=== PATIENT | female | born 1960 | race American Indian/Alaskan Native ===

== ENCOUNTER 2018-01-14 07:07 | Outpatient (CLI) | payer OTHER | END 2018-01-14 07:08 | disposition home or self-care (01) | LOC: PF 07:07 | PROVIDERS: ATTEND Internal Medicine | DX: J44.9 Chronic obstructive pulmonary disease, unspecified (principal); I10 Essential (primary) hypertension; F31.9 Bipolar disorder, unspecified; F20.9 Schizophrenia, unspecified; H54.3 Unqualified visual loss, both eyes; Z85.3 Personal history of malignant neoplasm of breast | CPT/HCPCS: 94010 ==

== ENCOUNTER 2021-11-25 18:10 | Emergency (ER) | payer MEDICARE, OTHER ==
[2021-11-25] MEDS ORDERED: HYDROmorphone 1 MG/1 ML INJ IV ONE ×3 (18:18→19:44)
[2021-11-25] MEDS ORDERED: ONDANSETRON 4 MG/2 ML INJ IV ONE (18:19)
--- NOTE | 2021-11-25 18:25 | Emergency Department Report ---
ED Chest Pain HPI - General Stated Complaint: CHEST PAIN PUI?: Yes Time Seen by Provider: 11/25/21 18:18 Source: patient, EMS, old records reviewed Mode of arrival: Ambulatory Limitations: No Limitations - History of Present Illness Initial Comments: Chief complaint: Chest pain HPI: This is a 61-year-old female with history of hypertension, COPD, atrial fibrillation, breast cancer in remission, tobacco dependence who presents with severe sudden onset of left-sided chest pain rating to the chest 45 minutes prior to arrival. While watching TV and playing games on her smart phone, she had a sudden onset of heavy chest pain which became sharp. Pain is 10 out of 10 left-sided radiating to the back. She has associated shortness of breath. No previous history of heart attack. No family history of heart attack. There is a family history of stroke. MD Complaint: chest pain -: Sudden, minutes(s) (45 minutes prior to arrival) Onset: during rest Pain Location: left chest Pain Radiation: back Severity: severe Severity scale (0 -10): 10 Quality: heaviness, sharp Consistency: constant Improves With: nothing Worsens With: nothing Treatments Prior to Arrival: aspirin, nitroglycerin, oxygen, other (Morphine) - Related Data Home Medications Medication Instructions Recorded Confirmed Last Taken Bisoprolol Fumarate [Zebeta] 5 mg PO DAILY 08/24/14 05/11/15 05/11/15 07:00 Budesoni/Formotero 160-4.5(Nf) 10.2 gm IH BID 08/24/14 05/11/15 05/10/15 21:00 [Symbicort 160-4.5] Cyclobenzaprine HCl [Flexeril 5mg] 5 mg PO TID PRN 08/24/14 05/11/15 05/08/15 Levothyroxine [Synthroid] 112 mcg PO DAILY 08/24/14 05/11/15 05/10/15 08:00 Naproxen [Naprosyn] 250 mg PO DAILY PRN 08/24/14 05/11/15 05/08/15 Tamoxifen Citrate 20 mg PO DAILY 08/24/14 05/11/15 05/08/15 captopriL [Capoten] 50 mg PO DAILY 08/24/14 05/11/15 05/11/15 07:00 Albuterol Mdi (or & Nicu Only) 2 puff IH QID PRN 05/07/15 05/11/15 05/10/15 22:00 [ProAir HFA Inhaler] Cyclobenzaprine HCl [Flexeril 5 MG 5 mg PO PRN PRN 05/07/15 05/11/15 05/08/15 TAB] Diclofenac Sodium [Voltaren] 100 gm TP PRN PRN 05/07/15 05/11/15 05/08/15 FLUoxetine HCL [PROzac] 40 mg PO QDAY 05/07/15 05/11/15 05/08/15 Meloxicam [Mobic] 7.5 mg PO QDAY 05/07/15 05/11/15 05/08/15 amLODIPine [Norvasc] 10 mg PO DAILY 05/07/15 05/11/15 05/11/15 07:00 Allergies Allergy/AdvReac Type Severity Reaction Status Date / Time latex Allergy Itching Verified 11/25/21 18:48 sulfamethoxazole Allergy Hives Verified 11/25/21 18:48 [From Bactrim] trimethoprim [From Bactrim] Allergy Hives Verified 11/25/21 18:48 Heart Score - HEART Score History: Highly suspicious EKG: Significant ST-depression Age: 45-65 Risk factors: 1-2 risk factors Troponin: < normal limit HEART Score: 6 - EKG Read Time Time EKG Completed: 18:13 EKG Read Time: 18:13 - Critical Actions Critical Actions: 4-6 pts:12-16.6% risk of adverse cardiac event. Should be admitted ED Review of Systems ROS: Stated complaint: CHEST PAIN Other details as noted in HPI Comment: All other systems reviewed and negative Constitutional: denies: chills, fever, malaise Respiratory: denies: cough, shortness of breath Cardiovascular: chest pain Gastrointestinal: denies: abdominal pain, nausea, vomiting ED Past Medical Hx - Past Medical History Previous Medical History?: Yes Hx Hypertension: Yes (2010) Hx Renal Disease: No Hx Arthritis: Yes () Hx COPD: Yes Additional medical history: Heart disease. Thyroid disease. - Surgical History Past Surgical History?: Yes Additional Surgical History: Bilateral mastectomy. - Family History Family history: hypertension, vascular disease - Social History Smoking Status: Current Every Day Smoker Substance Use Type: Alcohol - Medications Home Medications: Home Medications Medication Instructions Recorded Confirmed Last Taken Type Bisoprolol Fumarate [Zebeta] 5 mg PO DAILY 08/24/14 05/11/15 05/11/15 07:00 History Budesoni/Formotero 160-4.5(Nf) 10.2 gm IH BID 08/24/14 05/11/15 05/10/15 21:00 History [Symbicort 160-4.5] Cyclobenzaprine HCl [Flexeril 5mg] 5 mg PO TID PRN 08/24/14 05/11/15 05/08/15 History Levothyroxine [Synthroid] 112 mcg PO DAILY 08/24/14 05/11/15 05/10/15 08:00 History Naproxen [Naprosyn] 250 mg PO DAILY PRN 08/24/14 05/11/15 05/08/15 History Tamoxifen Citrate 20 mg PO DAILY 08/24/14 05/11/15 05/08/15 History captopriL [Capoten] 50 mg PO DAILY 08/24/14 05/11/15 05/11/15 07:00 History Albuterol Mdi (or & Nicu Only) 2 puff IH QID PRN 05/07/15 05/11/15 05/10/15 22:00 History [ProAir HFA Inhaler] Cyclobenzaprine HCl [Flexeril 5 MG 5 mg PO PRN PRN 05/07/15 05/11/15 05/08/15 History TAB] Diclofenac Sodium [Voltaren] 100 gm TP PRN PRN 05/07/15 05/11/15 05/08/15 History FLUoxetine HCL [PROzac] 40 mg PO QDAY 05/07/15 05/11/15 05/08/15 History Meloxicam [Mobic] 7.5 mg PO QDAY 05/07/15 05/11/15 05/08/15 History amLODIPine [Norvasc] 10 mg PO DAILY 05/07/15 05/11/15 05/11/15 07:00 History ED Physical Exam - General General appearance: alert, in distress, other (Patient is tearful, unable to sta y still due to severe pain) - Head Head exam: Present: atraumatic, normocephalic - Eye Eye exam: Present: normal appearance - ENT ENT exam: Present: mucous membranes moist - Neck Neck exam: Present: normal inspection, full ROM - Respiratory Respiratory exam: Present: normal lung sounds bilaterally. Absent: respiratory distress, wheezes, rales, rhonchi - Cardiovascular Cardiovascular Exam: Present: regular rate, normal rhythm, normal heart sounds, other (Equal radial pulses). Absent: systolic murmur, diastolic murmur, rubs, gallop - GI/Abdominal GI/Abdominal exam: Present: soft, normal bowel sounds. Absent: distended, tenderness, guarding, rebound - Extremities Exam Extremities exam: Present: normal inspection - Neurological Exam Neurological exam: Present: alert, oriented X3 - Psychiatric Psychiatric exam: Present: normal affect, anxious, other (Tearful in severe pain) - Skin Skin exam: Present: warm, dry, intact, normal color. Absent: rash ED Course Vital Signs 11/25/21 11/25/21 11/25/21 18:22 18:30 18:45 Temperature Pulse Rate 67 67 68 Respiratory 22 30 H 16 Rate Blood Pressure 177/104 Blood Pressure [Right] O2 Sat by Pulse 90 Oximetry 11/25/21 11/25/21 11/25/21 18:53 19:00 19:05 Temperature 98.1 F Pulse Rate 67 73 63 Respiratory 22 15 Rate Blood Pressure 197/93 172/90 Blood Pressure 172/102 [Right] O2 Sat by Pulse 97 Oximetry 11/25/21 11/25/21 11/25/21 19:08 19:10 19:14 Temperature 98.3 F Pulse Rate 67 Respiratory 21 18 Rate Blood Pressure Blood Pressure 172/90 [Right] O2 Sat by Pulse 98 100 Oximetry 11/25/21 11/25/21 11/25/21 19:15 19:22 19:24 Temperature Pulse Rate 72 69 Respiratory 14 18 Rate Blood Pressure 150/78 167/77 Blood Pressure [Right] O2 Sat by Pulse 92 Oximetry 11/25/21 11/25/21 11/25/21 19:31 19:45 19:53 Temperature Pulse Rate 67 66 67 Respiratory 20 13 21 Rate Blood Pressure 140/82 136/71 133/66 Blood Pressure [Right] O2 Sat by Pulse 98 93 Oximetry 11/25/21 11/25/21 11/25/21 20:01 20:15 20:31 Temperature Pulse Rate 67 66 63 Respiratory 13 16 9 L Rate Blood Pressure 116/63 106/58 94/55 Blood Pressure [Right] O2 Sat by Pulse 98 93 99 Oximetry 11/25/21 11/25/21 11/25/21 20:45 21:01 21:15 Temperature Pulse Rate 61 59 L 54 L Respiratory 14 13 10 L Rate Blood Pressure 98/44 102/53 97/64 Blood Pressure [Right] O2 Sat by Pulse 97 99 Oximetry 11/25/21 11/25/21 21:31 21:45 Temperature Pulse Rate 57 L 59 L Respiratory 9 L 13 Rate Blood Pressure 105/57 108/54 Blood Pressure [Right] O2 Sat by Pulse 99 93 Oximetry - Reevaluation(s) Reevaluation #1: 11/25/21 18:22 I requested EKG evaluation by interventional is Dr. Richards. He viewed EKG via electronic transmission. He agreed that EKG did have typical findings of STEMI Reevaluation #2: 11/25/21 18:44 I personally escorted the patient to CT scan. I observe the CT images being obtained. I personally viewed the images. I suspect ascending aortic dissection. Reevaluation #3: 11/25/21 18:48 I have ordered nicardipine and hydromorphone. Reevaluation #4: 11/25/21 18:57 I updated patient on diagnosis. Current systolic blood pressure 172. Heart rate 62. I requested stat nicardipine infusion. Reevaluation #5: 11/25/21 19:20 I personally called pharmacist to arrange for labetalol and nicardipine infusion therapies immediately sent to the emergency department. - Consultations Consultation #1: 11/25/21 19:48 Repeat heart rate, systolic blood pressure 140 mmHg with labetalol 5 mg/min, I asked nurse to increase infusion rate to 10 mg/min. Consultation #2: 11/25/21 19:54 I attempted to call patient's daughter Katerin [phone] no answer. I did speak with Dr. Malik CT surgeon at [facility]. She accepted the patient to [facility]. I spoke with pharmacist for labetalol infusion assistance. Max infusion rate according to protocol in EMR 6 mg/min. I have ordered additional labetalol dose of 10 mg with nicardipine infusion and additional IV Dilaudid for severe unrelenting pain. Consultation #3: 11/25/21 19:55 Work-up revealed CBC chemistry within normal limits troponin within normal limits. Elevated D-dimer. 11/25/21 22:07 Patient reported via EMS ACLS flight concerns 10:08 PM Patient's blood pressure 93/44 heart rate 52 ED Medical Decision Making - Lab Data Result diagrams: 11/25/21 19:12 11/25/21 19:12 - EKG Data -: EKG Interpreted by Me - EKG Data 11/25/21 18:22 EMS EKG obtained 1743 EKG interpreted by me after fax transmittal Normal sinus rhythm 70 bpm normal axis normal intervals positive LVH isolated AST elevation V3 ST depressions 2 3 with wavy baseline. EKG obtained 1812 EKG interpreted by me Normal sinus rhythm rate 60 bpm normal axis normal intervals positive LVH no significant ST elevation ST depression in the lateral leads V4 V5 EKG obtained 1814 EKG interpreted by me Sinus bradycardia 55 bpm normal axis normal QTC no ST elevation positive LVH - Radiology Data Radiology results: report reviewed, image reviewed interpreted by me: Ascending aortic dissection Patient Name: NAHUM MUNOZ Gender: Female Date of : 1960 Referring Provider: KELSEA FIGUEROA Organization: [facility] Accession Number: [id number] Requested Date: November 25, 2021 18:18 Report Status: Final Requested Procedure: 1 Procedure Description: CT angio abdomen pelvis Modality: CT Findings Reporting MD: Gregory Grider Dictation Time: November 25, 2021 18:07 Paver Layer: Not available 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 TECHNIQUE: Axial CT images were obtained after injection of 100 mL Omnipaque 350 IV contrast using CTA protocol. 3 plane MIP / 3D reconstructions were produced. All CT scans at this location are performed using CT dose reduction for ALARA by means of automated exposure control. COMPARISON: None available. FINDINGS: CTA CHEST: Prominent aortic dissection extending from the aortic arch into the ascending thoracic aorta. Much of the false lumen appears to contain thrombus. The dissection terminates just above the level of the celiac artery CTA abdomen and pelvis: Limited secondary to respiratory motion artifact. Moderate atherosclerotic calcification identified throughout the abdominal aorta. No abdominal aortic aneurysm is identified. The celiac and SMA arteries are grossly patent. The renal arteries appear grossly patent the ELIZA is patent There is extensive respiratory motion artifact identified throughout the exam The liver spleen pancreas adrenal glands and kidneys are grossly unremarkable within the limits of respiratory artifact. Urinary bladder is fluid distended. There appears to be an enhancing lesion within the left ovary measuring 1.2 cm in diameter. IMPRESSION: 1. [place] B dissection involving the aortic arch and descending thoracic aorta. There is prominent thrombus identified within the false lumen. The true lumen appears to supply the brachiocephalic artery, left common carotid artery and left subclavian artery. The dissection begins just beyond the origin of the left subclavian artery and extends to the level the esophageal hiatus. The maximum diameter of the proximal descending thoracic aortic dissection measures 3.4 cm. 2. Severe atherosclerotic calcification of the abdominal aorta without evidence of aneurysm or dissection. Signer Name: rGegory Grider MD Signed: 11/25/2021 6:07 PM Workstation Name: [id number] - Medical Decision Making Acute thoracic aortic dissection involving the aortic arch and descending portion of the thoracic aorta: I personally viewed the images personally in the CT suite while the study was being obtained. I immediately order second dose of hydromorphone and 3 boluses of labetalol with labetalol infusion and ergotamine infusion. Patient required 3 doses of hydrocodone morphine with minimal relief of pain. CT surgeon Dr. Malik will be accepting physician to [facility]. 2112 Repeat blood pressure 93/44, heart rate 60. Patient's pain finally improved. Critical Care Time: Yes Critical care time in (mins) excluding proc time.: 110 Critical care attestation.: If time is entered above; I have spent that time in minutes in the direct care of this critically ill patient, excluding procedure time. 110 minutes of critical care time excluding procedures were used in the care of the patient. I came immediately to the bedside upon patient's arrival. I obtained history from EMS at the bedside. I discussed treatment plan with the nursing team members. I reviewed electronic record. I was concerned for acute coronary syndrome versus aortic dissection. I requested patient to be transferred immediately to radiology for stat CT angiogram of the chest without labs. I ordered IV hydromorphone for pain relief. Blood pressure right side 192/92, left side 177/104. Patient required multiple interventions consultations and reassessments. I spoke personally with transfer center nurse at [facility]. I spoke with pharmacist to coordinate care here. I spoke with radiologist in order to expedite CT imaging in results. I attempted to call daughter Katerin without answer. assembly machine tender Dr. Richards gave me a direct phone number CT surgeon on the aortic team. CT surgeon Dr. Szymanski recommended contacting surgeon on-call. Dr. Malik will be the accepting CT surgeon at [facility]. ED Disposition Clinical Impression: Aortic dissection, thoracic, Hypertensive emergency Disposition: 02 [facility]ORT TERM [facility]OSP[facility] Is pt being admited?: Yes Does the pt Need Aspirin: Yes Condition: Critical Instructions: Hypertension (ED) Referrals: MARIO BARGER MD [Primary Care Provider] - 3-5 Days
[2021-11-25] MEDS ORDERED: niCARdipine 50 MG in SODIUM CHLORIDE 0.9% 250ML 230 ML IV SCH (19:00)
--- NOTE | 2021-11-25 19:11 | Cat Scan Report ---
CT angio chest, abdomen pelvis INDICATION / CLINICAL INFORMATION: Severe chest pain radiating to back. TECHNIQUE: Axial CT images were obtained after injection of 100 mL Omnipaque 350 IV contrast using CTA protocol. 3 plane MIP / 3D reconstructions were produced. All CT scans at this location are performed using CT dose reduction for ALARA by means of automated exposure control. COMPARISON: None available. FINDINGS: CTA CHEST: Prominent aortic dissection extending from the aortic arch into the ascending thoracic aor ta. Much of the false lumen appears to contain thrombus. The dissection terminates just above the level of the celiac artery CTA abdomen and pelvis: Limited secondary to respiratory motion artifact. Moderate atherosclerotic ca lcification identified throughout the abdominal aorta. No abdominal aortic aneurysm is identified. Th e celiac and SMA arteries are grossly patent. The renal arteries appear grossly patent the LEIZA is pat ent There is extensive respiratory motion artifact identified throughout the exam The liver spleen pancreas adrenal glands and kidneys are grossly unremarkable within the limits of re spiratory artifact. Urinary bladder is fluid distended. There appears to be an enhancing lesion withi n the left ovary measuring 1.2 cm in diameter. IMPRESSION: 1. [place] B dissection involving the aortic arch and descending thoracic aorta. There is prominent thrombus identified within the false lumen. The true lumen appears to supply the brachiocephalic yandy ry, left common carotid artery and left subclavian artery. The dissection begins just beyond the orig in of the left subclavian artery and extends to the level the esophageal hiatus. The maximum diameter of the proximal descending thoracic aortic dissection measures 3.4 cm. 2. Severe atherosclerotic calcification of the abdominal aorta without evidence of aneurysm or dissec tion. Signer Name: Gregory Grider MD Signed: 11/25/2021 7:07 PM Workstation Name: [id number]
[2021-11-25 19:22] LABS: Basophils # (Auto) 0.1 K/mm3 (0.0-0.1); Basophils % (Auto) 2.4 % (0.0-1.8); Eosinophils % (Auto) 0.8 % (0.0-4.3); Hematocrit 41.8 % (30.3-42.9); Hemoglobin 13.7 gm/dl (10.1-14.3); Lymphocytes # (Auto) 1.4 K/mm3 (1.2-5.4); Mean Corpuscular HGB Conc 33 % (30-34); Mean Corpuscular Volume 95 fl (79-97); Monocytes # (Auto) 0.4 K/mm3 (0.0-0.8); Monocytes % (Auto) 6.1 % (0.0-7.3); Platelet Count 220 K/mm3 (140-440); Red Blood Count 4.42 M/mm3 (3.65-5.03); Red Cell Distribution Width 13.2 % (13.2-15.2)
[2021-11-25] MEDS: labetaloL 200 MG in DEXTROSE 5% IN WATER 160 ML IV ONE ×2 (19:24→20:00)
[2021-11-25 19:46] LABS: Alanine Aminotransferase 8 units/L (7-56); BUN/Creatinine Ratio 14; Blood Urea Nitrogen 13 mg/dL (7-17); Calcium 9.1 mg/dL (8.4-10.2); Hemolysis Index 1
[2021-11-25] MEDS ORDERED: labetaloL 200 MG in DEXTROSE 5% IN WATER 160 ML IV ONE (20:05)
[2021-11-25 22:20] VITALS: BP 106/58
--- NOTE | 2021-11-28 08:34 | Electrocardiograph Report ---
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
== END 2021-11-25 22:10 | disposition short-term general hospital (02) ==
LOC: ED 18:10
DX: I71.01 Dissection of thoracic aorta (principal); I16.1 Hypertensive emergency; Z91.040 Latex allergy status; Z88.2 Allergy status to sulfonamides; F17.200 Nicotine dependence, unspecified, uncomplicated; F10.20 Alcohol dependence, uncomplicated
CPT/HCPCS: 36415; 74174; 80053; 83690; 84484; 85025; 85379; 93005; 96365; 96366; 96375; 96376; 99291; 99292; J1170; J2405; J3490; J7050; Q9967